=== PATIENT | male | born 1990 | race African-American/Black ===

== ENCOUNTER 2017-08-29 08:42 | Emergency (ER) | payer MEDICAID ==
[~2017-08-29] VITALS: Ht 188 cm; Wt 86.2 kg
[2017-08-29 08:58] VITALS: BP 114/78
[2017-08-29] MEDS ORDERED: LAMICTAL200 MG ORAL (09:16)
[2017-08-29 09:25] VITALS: BP 114/78
--- NOTE | 2017-08-30 12:35 | Emergency Room Report ---
History of Present Illness General Chief Complaint: Medication Refill Source: Patient Present Illness HPI 26 YO M with seizures since age 6 here for medication refill. states he hasnt seen his neurologist or couldnt get appt, ran out of lamictal 1 day ago. last seizure 2 mos ago. no fever chills black. no complaints. has been taking lamictal for many yrs Patient History Past Medical History: see triage record Past Surgical History: none Pertinent Family History: none Reviewed Nursing Documentation: PMH: Agreed, PSxH: Agreed Nursing Documentation-PMH Past Medical History: No History, Except For Hx Seizures: Yes Review of Systems All Other Systems: negative except mentioned in HPI Physical Exam Vital Signs Date Time Temp Pulse Resp B/P (MAP) Pulse Ox O2 Delivery O2 Flow Rate FiO2 08/29/17 08:53 97.9 63 14 114/78 98 Room Air Sp02 EP Interpretation: reviewed, normal General Appearance: normal inspection, well appearing, no apparent distress, alert, GCS 15, non-toxic Head: normocephalic, atraumatic Eyes: bilateral eye normal inspection, bilateral eye PERRL, bilateral eye EOMI ENT: normal ENT inspection, normal pharynx, normal voice, moist mucus membranes Neck: normal inspection, full range of motion, supple Respiratory: normal inspection, lungs clear, normal breath sounds, no respiratory distress, no retraction, no wheezing, speaking full sentences, chest symmetrical Cardiovascular #1: normal inspection, regular rate, rhythm, no edema, normal capillary refill Cardiovascular #2: 2+ radial (R), 2+ radial (L) Gastrointestinal: normal inspection, non tender, soft, non-distended, no guarding Genitourinary: no CVA tenderness Musculoskeletal: normal inspection, back normal, normal range of motion, non- tender Neurologic: normal inspection, alert, oriented x3, responsive, motor strength/ tone normal, sensory intact, normal gait, speech normal Psychiatric: normal inspection, judgement/insight normal, memory normal Skin: normal inspection, normal color, no rash, warm/dry, well hydrated, normal turgor Medical Decision Making Diagnostic Impression: Primary Impression: History of seizure Additional Impression: Medication refill ER Course 26 yo M here for medication refill for lamictal Dispo: DC'ed home with prescription lamictal x 1 week instructed to fu with neurologist CANDIDA for further refills Last Vital Signs Date Time Temp Pulse Resp B/P (MAP) Pulse Ox O2 Delivery O2 Flow Rate FiO2 08/29/17 09:25 97.9 68 14 114/78 98 Room Air Disposition: HOME, SELF-CARE Condition: Stable Scripts Lamotrigine (LAMICTAL) 200 Mg Tablet 200 MG ORAL BID for 7 Days, #14 TAB 0 Refills Prov: Lisy Samano M.D. 08/29/17 Referrals: NOT CHOSEN IPA/MD,REFERRING Patient Instructions: Medicine Refill at the Emergency Department, Seizure, Adult, [id number] Lisy Samano M.D. Aug 30, 2017 12:35
== END 2017-08-29 10:38 | disposition home or self-care (01) ==
LOC: EMR 09:06
DX: Z76.0 Encounter for issue of repeat prescription (principal); G40.909 Epilepsy, unspecified, not intractable, without status epilepticus
CPT/HCPCS: 99282

== ENCOUNTER 2017-09-12 18:47 | Emergency (ER) | payer MEDICAID ==
[~2017-09-12] VITALS: Ht 188 cm; Wt 81.6 kg
[~2017-09-12 18:47] MED LIST: LAMICTAL200 MG ORAL
[2017-09-12 19:12] VITALS: BP 115/75
--- NOTE | 2017-09-12 19:40 | Emergency Room Report ---
History of Present Illness General Chief Complaint: Medication Refill Source: Patient Present Illness HPI 26-year-old male presents to the emergency department requesting medication refill for his antiepileptic medication in addition to ibuprofen for which he takes for intermittent headaches. Patient states she has a history of chief maul seizures for which he takes 200 mg Lamictal twice daily he also has intermittent headaches for which he takes 600 mg ibuprofen only as needed for pain. Patient states he currently does not have a PCP which is why he is in the ER for medication refill. Patient states his last seizure was April of this year the last time he took his medication was this morning. he denies fevers, chills, pain/stiffness, ages in character to his headaches. Denies CP, Palpitations, LOC, AMS, dizziness, Changes in Vision, Sensation, paresthesias, or a sudden severe headache. Patient History Past Medical History: see triage record, seizures Past Surgical History: none Pertinent Family History: none Reviewed Nursing Documentation: PMH: Agreed, PSxH: Agreed Nursing Documentation-PMH Hx Seizures: Yes Review of Systems All Other Systems: negative except mentioned in HPI Physical Exam Vital Signs Date Time Temp Pulse Resp B/P (MAP) Pulse Ox O2 Delivery O2 Flow Rate FiO2 09/12/17 19:01 98.1 64 16 115/75 98 Room Air Sp02 EP Interpretation: reviewed, normal General Appearance: no apparent distress, alert, GCS 15, non-toxic Head: normocephalic, atraumatic Eyes: bilateral eye normal inspection, bilateral eye PERRL ENT: hearing grossly normal, normal voice Neck: full range of motion Respiratory: lungs clear, normal breath sounds, speaking full sentences Cardiovascular #1: regular rate, rhythm Musculoskeletal: back normal, gait/station normal, normal range of motion Neurologic: alert, oriented x3, responsive, motor strength/tone normal, sensory intact, normal gait, speech normal Skin: normal color, no rash, warm/dry, well hydrated Medical Decision Making PA Attestation Dr. lynch is my supervising Physician whom patient management has been discussed with. Diagnostic Impression: Primary Impression: Encounter for medication refill ER Course 26-year-old male presents to the emergency department requesting medication refill for his antiepileptic medication in addition to ibuprofen for which he takes for intermittent headaches. Patient states she has a history of chief maul seizures for which he takes 200 mg Lamictal twice daily he also has intermittent headaches for which he takes 600 mg ibuprofen only as needed for pain. Patient states he currently does not have a PCP which is why he is in the ER for medication refill. Patient states his last seizure was April of this year the last time he took his medication was this morning. he denies fevers, chills, pain/stiffness, ages in character to his headaches. Denies CP, Palpitations, LOC, AMS, dizziness, Changes in Vision, Sensation, paresthesias, or a sudden severe headache. Ddx considered but are not limited to: drug seeking, OD, seizure just to name a few. Vital signs: are WNL, pt. is afebrile H&PE are most consistent with need for medication refill and normal MSE. ORDERS: none required at this time, the diagnosis is clinical ED INTERVENTIONS: None required at this time. DISCHARGE: At this time pt. is stable for d/c to home. Will provide printed patient care instructions, and any necessary prescriptions. Care plan and follow up instructions have been discussed with the patient prior to discharge. Last Vital Signs Date Time Temp Pulse Resp B/P (MAP) Pulse Ox O2 Delivery O2 Flow Rate FiO2 09/12/17 19:01 98.1 64 16 115/75 98 Room Air Disposition: HOME, SELF-CARE Condition: Stable Scripts Ibuprofen* (MOTRIN*) 600 Mg Tablet 600 MG ORAL THREE TIMES A DAY, #30 TAB 0 Refills Prov: Hiwot Oleary 09/12/17 Lamotrigine (LAMICTAL XR) 200 Mg Tab.er.24 200 MG ORAL BID, #60 TAB 0 Refills Prov: Hiwot Oleary 09/12/17 Patient Instructions: Medicine Refill at the Emergency Department Additional Instructions: Take medications as directed. Follow up with a Primary Care Provider in 3-5 days, even if your symptoms have resolved. --Please review list of primary care clinics, if you do not already have a primary care provider Return sooner to ED if new symptoms occur, or current symptoms become worse. - Please note that this Emergency Department Report was dictated using [employer] Life Sciencesprimary care pediatrician technology software, occasionally this can lead to erroneous entry secondary to interpretation by the dictation equipment. Hiwot Oleary Sep 12, 2017 19:39
[2017-09-12] MEDS ORDERED: IBUPROFEN600 MG ORAL (19:41)
[2017-09-12] MEDS ORDERED: LAMICTAL XR200 MG ORAL (19:41)
[2017-09-12 19:52] VITALS: BP 115/75
== END 2017-09-12 19:52 | disposition home or self-care (01) ==
LOC: EMR 19:41
DX: G40.909 Epilepsy, unspecified, not intractable, without status epilepticus (principal); Z76.0 Encounter for issue of repeat prescription
CPT/HCPCS: 99282

== ENCOUNTER 2017-10-01 07:17 | Emergency (ER) | payer MEDICAID ==
[~2017-10-01] VITALS: Ht 188 cm; Wt 81.6 kg
[~2017-10-01 07:17] MED LIST changes: +IBUPROFEN600 MG ORAL; +LAMICTAL XR200 MG ORAL
[2017-10-01 07:35] VITALS: BP 130/83
--- NOTE | 2017-10-01 07:42 | Emergency Room Report ---
History of Present Illness General Chief Complaint: Laceration Source: Patient Present Illness HPI Patient reports punching a wall about 2 weeks ago he had multiple cuts on the forearm and the hand does have healed however there was one location at the base of the thumb which appears to be not fully closing Denies any pain denies any fevers or chills Patient reports that he has been putting peroxide in that area several times a day Denies any redness Denies any discharge Allergies: Coded Allergies: No Known Allergies (Unverified , 10/01/17) Patient History Past Medical History: see triage record Pertinent Family History: none Reviewed Nursing Documentation: PMH: Agreed, PSxH: Agreed Nursing Documentation-PMH Hx Seizures: Yes Review of Systems All Other Systems: negative except mentioned in HPI Physical Exam Vital Signs Date Time Temp Pulse Resp B/P (MAP) Pulse Ox O2 Delivery O2 Flow Rate FiO2 10/01/17 07:24 97.9 75 19 130/83 98 Room Air Sp02 EP Interpretation: reviewed, normal General Appearance: well appearing, no apparent distress Head: normocephalic, atraumatic Eyes: bilateral eye PERRL, bilateral eye EOMI ENT: normal pharynx, no angioedema Neck: supple Musculoskeletal: other - Good range of motion on the thumb appropriate approximation, there is a small puncture laceration that is open through the dermis Neurologic: alert, oriented x3, responsive, admissions officer III-XII nml as tested, motor strength/tone normal Skin: other - Small puncture signs of wound, secondary healing, no signs of erythema or fluctuance Lymphatic: no adenopathy Procedures Laceration/Wound Repair Progress Total length of the area is essentially a puncture wound approximately 2-3 mm the area is cleansed and prepped Steri-Strip was applied over the top for mild approximation Patient tolerated the procedure well Medical Decision Making Diagnostic Impression: Primary Impression: Laceration Additional Impression: old laceration, not sutured ER Course Given the date of the initial injury over 2 weeks ago I do not feel suturing of the area would be appropriate Areas also fairly small in nature Steri-Strip was applied with appropriate approximation The patient is stable for close followup Last Vital Signs Date Time Temp Pulse Resp B/P (MAP) Pulse Ox O2 Delivery O2 Flow Rate FiO2 10/01/17 07:35 97.9 84 19 130/83 98 Room Air Status: improved Disposition: HOME, SELF-CARE Condition: Improved [facility]errals: [facility] (PCP) Additional Instructions: Patient is provided with the discharge instructions notified to follow up with primary doctor in the next 2-3 days otherwise return to the er with any worsening symptoms. Please note that this report is being documented using [employer] technology. This can lead to erroneous entry secondary to incorrect interpretation by the dictating instrument. BRANDON LAROSE D.O. Oct 01, 2017 07:42
[2017-10-01 07:49] VITALS: BP 130/83
== END 2017-10-01 07:51 | disposition home or self-care (01) ==
LOC: EMR 07:37
DX: S61.011A Laceration without foreign body of right thumb without damage to nail, initial encounter (principal); W22.09XA Striking against other stationary object, initial encounter; Y92.9 Unspecified place or not applicable
CPT/HCPCS: 99284

== ENCOUNTER 2017-11-04 20:35 | Emergency (ER) | payer MEDICAID ==
[~2017-11-04] VITALS: Ht 188 cm; Wt 80.7 kg
[2017-11-04] MEDS ORDERED: LAMICTAL200 MG ORAL (21:44)
--- NOTE | 2017-11-04 21:44 | Emergency Room Report ---
History of Present Illness General Chief Complaint: Medication Refill Source: Patient Present Illness HPI Is a 27-year-old male with a history of seizure. He presents with chief complaint of seizure last night. He need to refill on his Lamictal. Been out of it for one day. No seizure today. Denies any other complaint. Similar symptom in the past. He does not drive. Allergies: Coded Allergies: No Known Allergies (Unverified , 10/01/17) Patient History Past Medical History: see triage record, old chart reviewed, seizures Past Surgical History: none Pertinent Family History: none Social History: Denies: smoking Immunizations: other Reviewed Nursing Documentation: PMH: Agreed, PSxH: Agreed Nursing Documentation-PMH Hx Seizures: Yes Review of Systems Eye: Denies: eye pain, blurred vision ENT: Denies: ear pain, nose congestion, throat swelling Respiratory: Denies: cough, shortness of breath Cardiovascular: Denies: chest pain, palpitations Gastrointestinal: Denies: abdominal pain, diarrhea, nausea, vomiting Musculoskeletal: Denies: back pain, joint pain Skin: Denies: rash Neurological: Denies: headache, numbness Endocrine: Denies: increased thirst, increased urine Hematologic/Lymphatic: Denies: easy bruising All Other Systems: negative except mentioned in HPI Physical Exam Vital Signs Date Time Temp Pulse Resp B/P (MAP) Pulse Ox O2 Delivery O2 Flow Rate FiO2 11/04/17 20:51 97.9 72 18 114/81 98 Room Air vitals normal Sp02 EP Interpretation: reviewed, normal General Appearance: well appearing, no apparent distress, alert Head: normocephalic, atraumatic Eyes: bilateral eye PERRL, bilateral eye EOMI ENT: hearing grossly normal, normal pharynx Neck: full range of motion, supple, no meningismus Respiratory: chest non-tender, lungs clear, normal breath sounds Cardiovascular #1: regular rate, rhythm, no murmur Gastrointestinal: normal bowel sounds, non tender, no mass, no organomegaly, no bruit, non-distended Musculoskeletal: back normal, gait/station normal, normal range of motion Psychiatric: mood/affect normal Skin: warm/dry Medical Decision Making Diagnostic Impression: Primary Impression: Medication refill Additional Impression: History of seizure ER Course Patient here for refill his seizure medication. He does not drive. No active seizure. Last Vital Signs Date Time Temp Pulse Resp B/P (MAP) Pulse Ox O2 Delivery O2 Flow Rate FiO2 11/04/17 20:51 97.9 72 18 114/81 98 Room Air Status: improved Disposition: HOME, SELF-CARE Condition: Stable Scripts Lamotrigine (LAMICTAL) 200 Mg Tablet 200 MG ORAL TWICE A DAY, #60 TAB 0 Refills Prov: LENNY COLE M.D. 11/04/17 Patient Instructions: Medicine Refill at the Emergency Department Additional Instructions: Followup with your DrKathy for refills on your medication. Followup within the week. Return if worse. LENNY COLE M.D. Nov 04, 2017 21:44
[2017-11-04 21:45] VITALS: BP 114/81
== END 2017-11-04 21:45 | disposition home or self-care (01) ==
LOC: EMR 21:40
DX: Z76.0 Encounter for issue of repeat prescription (principal); R56.9 Unspecified convulsions
CPT/HCPCS: 99283

== ENCOUNTER 2017-12-19 20:09 | Emergency (ER) | payer MEDICAID ==
[~2017-12-19] VITALS: Ht 188 cm; Wt 81.6 kg
[2017-12-19 20:20] VITALS: BP 130/84
[2017-12-19] MEDS ORDERED: IBUPROFEN600 MG ORAL (20:22)
[2017-12-19] MEDS ORDERED: LAMICTAL200 MG ORAL (20:32)
[2017-12-19 20:45] VITALS: BP 128/82
--- NOTE | 2017-12-23 12:00 | Emergency Room Report ---
History of Present Illness General Chief Complaint: Medication Refill Source: Patient Present Illness HPI Patient is a 27-year-old male who presented after running out of his medications. Patient reportedly takes medications for seizure. The patient states he had been taking 200 mg of Lamictal. The patient reports taking his medication this morning but did not have his evening dose. Patient denied any current complaints Allergies: Coded Allergies: No Known Allergies (Unverified , 10/01/17) Patient History Past Medical History: see triage record Reviewed Nursing Documentation: PMH: Agreed, PSxH: Agreed Nursing Documentation-PMH Past Medical History: No History, Except For Hx Seizures: Yes Review of Systems All Other Systems: negative except mentioned in HPI Physical Exam Vital Signs Date Time Temp Pulse Resp B/P (MAP) Pulse Ox O2 Delivery O2 Flow Rate FiO2 12/19/17 20:17 97.9 62 17 137/85 96 Room Air 97.9 General Appearance: well appearing, no apparent distress, alert, GCS 15 Head: normocephalic, atraumatic ENT: hearing grossly normal, normal voice Neck: full range of motion, supple Respiratory: no respiratory distress, speaking full sentences Musculoskeletal: no calf tenderness Neurologic: normal gait Psychiatric: mood/affect normal Skin: no rash Medical Decision Making Diagnostic Impression: Primary Impression: Medication refill ER Course The patient presented for medication refill. The patient was given a dose of his seizure medication. Patient given prescriptions for Lamictal. The patient is advised to establish himself with neurology for further refills and monitoring of seizure disorder. Last Vital Signs Date Time Temp Pulse Resp B/P (MAP) Pulse Ox O2 Delivery O2 Flow Rate FiO2 12/19/17 20:45 36.98892 79 17 128/82 100 Room Air 208.2 Status: improved Disposition: HOME, SELF-CARE Condition: Stable Scripts Lamotrigine (LAMICTAL) 200 Mg Tablet 200 MG ORAL TWICE A DAY, #60 TAB 0 Refills Prov: José Miguel Avendaño 12/19/17 Referrals: [facility] (PCP) Patient Instructions: Medicine Refill at the Emergency Department José Miguel Avendaño Dec 23, 2017 12:00
== END 2017-12-19 20:47 | disposition home or self-care (01) ==
LOC: EMR 20:38
DX: Z76.0 Encounter for issue of repeat prescription (principal)
CPT/HCPCS: 99283

== ENCOUNTER 2018-03-06 09:50 | Emergency (ER) | payer MEDICAID ==
[~2018-03-06] VITALS: Ht 188 cm; Wt 81.6 kg
[2018-03-06] MEDS ORDERED: CLOTRIMAZOLE15 GM TOPIC (10:10)
[2018-03-06 10:36] VITALS: BP 121/74
[2018-03-06 10:38] VITALS: BP 121/74
--- NOTE | 2018-03-12 07:33 | Emergency Room Report ---
History of Present Illness General Chief Complaint: Skin Rash/Abscess Source: Patient Present Illness HPI Patient persist with complaints of lesion on the right side of the penis He noticed this about 7 days ago Denies any itching Denies any pain Denies any fevers or chills Denies any inguinal masses Denies any discharge Patient essentially active with one partner Denies any frequency of urination Denies any blood in the urine denies any testicular pain Allergies: Coded Allergies: No Known Allergies (Unverified , 10/01/17) Patient History Past Medical History: see triage record Pertinent Family History: none Reviewed Nursing Documentation: PMH: Agreed; PSxH: Agreed Nursing Documentation-PMH Hx Seizures: Yes Review of Systems All Other Systems: negative except mentioned in HPI Physical Exam Sp02 EP Interpretation: reviewed, normal General Appearance: well appearing, no apparent distress Head: normocephalic, atraumatic Eyes: bilateral eye PERRL ENT: normal pharynx, no angioedema Neck: supple Respiratory: lungs clear Gastrointestinal: non tender, soft, no mass Genitourinary: other - Circumcised patient, small irregular lesion on the right mid aspect of the penile shaft, no ulceration nontender to palpation, the area that specific lesion appears mildly raised, nonerythematous, no discharge, Musculoskeletal: back normal Neurologic: alert, oriented x3 Skin: other - As above Lymphatic: no adenopathy Medical Decision Making Diagnostic Impression: Primary Impression: Rash and other nonspecific skin eruption ER Course Patient has a nonspecific pain all rash Does not appear to be in line with herpetic lesion, or syphilis. There is a questionable fungal component. Patient is attempted on this medication initially However he requires STD clinic follow-up and dermatology follow-up Status: unchanged Disposition: HOME, SELF-CARE Condition: Stable Scripts Clotrimazole* (LOTRIMIN*) 15 Gm Cream..g. 1 APPLIC TOPIC TWICE A DAY for 10 Days, GM Prov: Heather Cuellar DO 03/06/18 Referrals: NON PHYSICIAN (PCP) Patient Instructions: Rash Additional Instructions: Patient is provided with the discharge instructions notified to follow up with primary doctor in the next 2-3 days otherwise return to the er with any worsening symptoms. Please note that this report is being documented using [employer] technology. This can lead to erroneous entry secondary to incorrect interpretation by the dictating instrument. Heather Cuellar DO March 12, 2018 07:33
== END 2018-03-06 14:00 | disposition home or self-care (01) ==
LOC: EMR 10:30
DX: R21 Rash and other nonspecific skin eruption (principal)
CPT/HCPCS: 99282

== ENCOUNTER 2018-06-08 20:17 | Emergency (ER) | payer MEDICAID ==
[~2018-06-08] VITALS: Ht 188 cm; Wt 78.0 kg
[~2018-06-08 20:17] MED LIST changes: +CLOTRIMAZOLE15 GM TOPIC
[2018-06-08] MEDS ORDERED: KEPPRA500 M4 ORAL (20:22)
[2018-06-08 20:56] LABS: BASOPHILS % (AUTO) 2.3 % (0.0-2.0); HEMATOCRIT 50.5 % (42.0-52.0); HEMOGLOBIN 16.6 G/DL (14.2-18.0); LYMPHOCYTES % (AUTO) 42.8 % (20.0-45.0); MEAN CORPUSCULAR VOLUME 89 FL (80-99); MONOCYTES % (AUTO) 8.8 % (1.0-10.0); PLATELET COUNT 132 K/UL (150-450); RED CELL DISTRIBUTION WIDTH 12.1 % (11.6-14.8); WHITE BLOOD COUNT 4.7 K/UL (4.8-10.8)
[2018-06-08 21:08] LABS: ANION GAP 22 mmol/L (5-15); BLOOD UREA NITROGEN 12 mg/dL (7-18); CALCIUM 9.9 MG/DL (8.5-10.1); CARBON DIOXIDE 19 MMOL/L (21-32); CHLORIDE 100 MMOL/L (98-107); CREATININE 1.8 MG/DL (0.55-1.30); POTASSIUM 3.9 MMOL/L (3.5-5.1); SODIUM 141 MMOL/L (136-145)
[2018-06-08 21:12] LABS: ALANINE AMINOTRANSFERASE 24 U/L (12-78); ALBUMIN 4.4 G/DL (3.4-5.0); ALBUMIN/GLOBULIN RATIO 1.1 (1.0-2.7); ALKALINE PHOSPHATASE 66 U/L (46-116); ASPARTATE AMINO TRANSFERASE 22 U/L (15-37); BILIRUBIN,TOTAL 0.5 MG/DL (0.2-1.0)
[2018-06-08] MEDS ORDERED: LAMICTAL200 MG ORAL (21:41)
--- NOTE | 2018-06-08 22:15 | Emergency Room Report ---
History of Present Illness General Chief Complaint: Seizure Source: Patient, EMS Present Illness HPI Patient is a 27-year-old male brought in by EMS after witnessed seizure. Patient prior history of seizure disorder. Patient recently been changed from Lamictal to Keppra. Patient been taking normally Lamictal 200 mg twice a day. The patient had not been having a fever or vomiting. He denies any pain. Allergies: Coded Allergies: No Known Allergies (Unverified , 10/01/17) Patient History Past Medical History: see triage record Reviewed Nursing Documentation: PMH: Agreed; PSxH: Agreed Nursing Documentation-PMH Hx Seizures: Yes Review of Systems All Other Systems: negative except mentioned in HPI Physical Exam Vital Signs Date Time Temp Pulse Resp B/P (MAP) Pulse Ox O2 Delivery O2 Flow Rate FiO2 06/08/18 20:19 98.0 102 18 120/76 98 98.1 06/08/18 20:36 Room Air Sp02 EP Interpretation: reviewed, normal General Appearance: normal inspection, well appearing, no apparent distress, alert, GCS 15 Head: atraumatic ENT: normal ENT inspection, hearing grossly normal, normal voice Neck: normal inspection, full range of motion, supple, no bony tend Respiratory: normal inspection, lungs clear, normal breath sounds, no respiratory distress, no retraction, no wheezing Cardiovascular #1: regular rate, rhythm, no edema Gastrointestinal: normal inspection, normal bowel sounds, non tender, soft, no guarding, no hernia Genitourinary: no CVA tenderness Musculoskeletal: normal inspection, back normal, normal range of motion Neurologic: normal inspection, alert, oriented x3, responsive, motor bike mechanic III-XII nml as tested, speech normal Psychiatric: normal inspection, judgement/insight normal, mood/affect normal Skin: normal inspection, normal color, no rash Medical Decision Making Diagnostic Impression: Primary Impression: Seizure disorder ER Course patient presented for seizure. Differential diagnosis included alcohol withdrawal, cysticercosis, electrolyte abnormality, mass lesion, or cranial hemorrhage.Because of complexity of patient's case laboratory testing was ordered. The patient noted to have slightly elevated creatinine. The patient given prescription for Lamictal. Seizure report was made. Patient was advised to continue hydration at home. The patient was given IV fluids while in emergency department.The patient is advised to follow up with primary care doctor in 1-2 days. Patient is advised to return if any worsening condition or if any changes in status that are concerning. This report is dictated with [employer] animal science instructor software which may occasionally lead to discrepancies related to use of this software. Labs Test 06/08/18 20:37 White Blood Count 4.7 K/UL (4.8-10.8) Red Blood Count 5.70 M/UL (4.70-6.10) Hemoglobin 16.6 G/DL (14.2-18.0) Hematocrit 50.5 % (42.0-52.0) Mean Corpuscular Volume 89 FL (80-99) Mean Corpuscular Hemoglobin 29.0 PG (27.0-31.0) Mean Corpuscular Hemoglobin Concent 32.8 G/DL (32.0-36.0) Red Cell Distribution Width 12.1 % (11.6-14.8) Platelet Count 132 K/UL (150-450) Mean Platelet Volume 9.9 FL (6.5-10.1) Neutrophils (%) (Auto) 44.0 % (45.0-75.0) Lymphocytes (%) (Auto) 42.8 % (20.0-45.0) Monocytes (%) (Auto) 8.8 % (1.0-10.0) Eosinophils (%) (Auto) 2.0 % (0.0-3.0) Basophils (%) (Auto) 2.3 % (0.0-2.0) Sodium Level 141 MMOL/L (136-145) Potassium Level 3.9 MMOL/L (3.5-5.1) Chloride Level 100 MMOL/L (98-107) Carbon Dioxide Level 19 MMOL/L (21-32) Anion Gap 22 mmol/L (5-15) Blood Urea Nitrogen 12 mg/dL (7-18) Creatinine 1.8 MG/DL (0.55-1.30) Estimat Glomerular Filtration Rate 54.3 mL/min (>60) Glucose Level 106 MG/DL (74-106) Calcium Level 9.9 MG/DL (8.5-10.1) Total Bilirubin 0.5 MG/DL (0.2-1.0) Aspartate Amino Transf (AST/SGOT) 22 U/L (15-37) Alanine Aminotransferase (ALT/SGPT) 24 U/L (12-78) Alkaline Phosphatase 66 U/L (46-116) Total Protein 8.4 G/DL (6.4-8.2) Albumin 4.4 G/DL (3.4-5.0) Globulin 4.0 g/dL Albumin/Globulin Ratio 1.1 (1.0-2.7) EKG Diagnostic Results Rate: normal Rhythm: NSR ST Segments: no acute changes Last Vital Signs Date Time Temp Pulse Resp B/P (MAP) Pulse Ox O2 Delivery O2 Flow Rate FiO2 06/08/18 20:36 102 18 Room Air 06/08/18 20:19 98.0 120/76 98 98.1 Status: improved Disposition: HOME, SELF-CARE Condition: Stable Scripts Lamotrigine (LAMICTAL) 200 Mg Tablet 200 MG ORAL TWICE A DAY, #60 TAB 0 Refills Prov: José Miguel Avendaño MD 06/08/18 Referrals: [facility] (PCP) Patient Instructions: Seizure, Adult José Miguel Avendaño MD Jun 08, 2018 22:15
[2018-06-08 23:07] VITALS: BP 120/76
== END 2018-06-08 23:13 | disposition home or self-care (01) ==
LOC: EDBD 20:17 → EDUNIT# 20:17 → EMR 21:00
DX: G40.909 Epilepsy, unspecified, not intractable, without status epilepticus (principal)
CPT/HCPCS: 36415; 80053; 85025; 99284

== ENCOUNTER 2019-05-06 07:43 | Emergency (ER) | payer MEDICAID ==
[~2019-05-06] VITALS: Ht 188 cm; Wt 77.1 kg
[~2019-05-06 07:43] MED LIST changes: +KEPPRA500 M4 ORAL
[2019-05-06 08:10] VITALS: BP 124/78
--- NOTE | 2019-05-06 08:13 | NUR ---
ED Nurse Note: pt walked in to ED due to feeling dizzy since this morning. per pt, floor was spinning. AAO x4. respirations even and non-labored noted. ambulatory with steady gait. skin warm to touch. no open wound noted. will wait for the further order.
[2019-05-06] MEDS ORDERED: LAMICTAL200 MG ORAL (08:34)
[2019-05-06 08:44] VITALS: BP 124/78
--- NOTE | 2019-05-06 08:45 | NUR ---
ER DISCHARGE NOTE: Patient is cleared to be discharged per ERMD, pt is aox4, on room air, with stable vital signs. pt was given dc and prescription instructions, pt was able to verbalize understanding, pt id band removed. pt is able to ambulate with steady gait. pt took all belongings.
--- NOTE | 2019-05-06 10:30 | Emergency Room Report ---
History of Present Illness General Chief Complaint: Dizziness Source: Patient Present Illness HPI Patient presents with complaints of dizziness reports that He needs a prescription for his Lamictal and that he has had dizziness before when running low on his Lamictal Denies any headache denies any chest pain denies any back or flank pain denies any focal weakness Dizziness is essentially their baseline without any change in position or exertion denies any headache with it denies any recent seizures however he reports he has Frequent seizure activity he has been on the same Lamictal dosage for over a year And reports taking seizure medication since being a child denies any fevers denies any neck pain denies any photophobia Allergies: Coded Allergies: No Known Allergies (Unverified , 10/01/17) Patient History Past Medical History: see triage record Pertinent Family History: none Reviewed Nursing Documentation: PMH: Agreed; PSxH: Agreed Nursing Documentation-PMH Past Medical History: No History, Except For Hx Seizures: Yes Review of Systems All Other Systems: negative except mentioned in HPI Physical Exam Vital Signs Date Time Temp Pulse Resp B/P (MAP) Pulse Ox O2 Delivery O2 Flow Rate FiO2 05/06/19 08:01 98.2 58 16 124/78 (93) 98 Room Air Sp02 EP Interpretation: reviewed, normal General Appearance: well appearing, no apparent distress Head: normocephalic, atraumatic Eyes: bilateral eye PERRL, bilateral eye EOMI ENT: hearing grossly normal, normal pharynx, TMs + canals normal, uvula midline Neck: full range of motion, supple, no meningismus, no bony tend Respiratory: lungs clear, normal breath sounds, no rhonchi, no respiratory distress, no retraction, no accessory muscle use Cardiovascular #1: normal peripheral pulses, regular rate, rhythm, no edema, no gallop, no JVD, no murmur Gastrointestinal: normal bowel sounds, non tender, soft, no mass, no organomegaly, non-distended, no guarding, no hernia, no pulsatile mass, no rebound Genitourinary: no CVA tenderness Musculoskeletal: normal inspection Neurologic: oriented x3, responsive, subscription clerk III-XII nml as tested, motor strength/ tone normal, sensory intact Psychiatric: mood/affect normal Lymphatic: normal inspection, no adenopathy Medical Decision Making Diagnostic Impression: Primary Impression: History of seizure Additional Impressions: Medication refill Dizziness ER Course Given the patient's initial complaint multiple differentials and consideration patient also reports that he thinks he was not drinking enough water Mainly contributes the symptoms to his previous symptoms when running low on his Lamictal Patient reports getting routine checks of his blood with his primary physician Hemodynamically stable does not show any acute signs of dizziness here and will have initial conservative outpatient attempt with refill of his medications Last Vital Signs Date Time Temp Pulse Resp B/P (MAP) Pulse Ox O2 Delivery O2 Flow Rate FiO2 05/06/19 08:44 98.2 57 16 124/78 98 Room Air Status: unchanged Disposition: HOME, SELF-CARE Condition: Improved Scripts Lamotrigine (LAMICTAL) 200 Mg Tablet 200 MG ORAL DAILY, #30 TAB 0 Refills Prov: Heather Cuellar DO 05/06/19 Referrals: NON PHYSICIAN (PCP) Patient Instructions: Dizziness, Seizure, Adult, [id number] Additional Instructions: Patient is provided with the discharge instructions notified to follow up with primary doctor in the next 2-3 days otherwise return to the er with any worsening symptoms. Please note that this report is being documented using [employer] technology. This can lead to erroneous entry secondary to incorrect interpretation by the dictating instrument. Heather Cuellar DO May 06, 2019 10:30
== END 2019-05-06 08:49 | disposition home or self-care (01) ==
LOC: EMR 08:49
DX: R42 Dizziness and giddiness (principal); Z76.0 Encounter for issue of repeat prescription; G40.909 Epilepsy, unspecified, not intractable, without status epilepticus
CPT/HCPCS: 99282

== ENCOUNTER 2019-09-19 22:29 | Emergency (ER) | payer MEDICAID ==
[~2019-09-19] VITALS: Ht 188 cm; Wt 77.1 kg
[2019-09-19] MEDS ORDERED: LAMICTAL150 MG ORAL (22:38)
[2019-09-19 22:54] VITALS: BP 125/86
--- NOTE | 2019-09-19 23:01 | Emergency Room Report ---
History of Present Illness General Chief Complaint: Abdominal Pain Source: Patient Present Illness HPI This is a 28-year-old with no past medical history. He presents with chief complaint abdominal pain and dizziness. Onset for 3 days now. On the first day he had some epigastric pain and several episode of vomiting. No vomiting since but decreased appetite. Now he felt lightheaded and dizzy. Worse when he stands up. No diarrhea. No fever chills. Pain is localized to the epigastric area. Pain is sharp and 7 out of 10. No radiation. No trauma. Allergies: Coded Allergies: No Known Allergies (Unverified , 10/01/17) Patient History Past Medical History: see triage record, old chart reviewed, seizures Past Surgical History: none Pertinent Family History: none Social History: Denies: smoking Immunizations: other Reviewed Nursing Documentation: PMH: Agreed; PSxH: Agreed Nursing Documentation-PMH Past Medical History: No History, Except For Hx Seizures: Yes Review of Systems Eye: Denies: eye pain, blurred vision ENT: Denies: ear pain, nose congestion, throat swelling Respiratory: Denies: cough, shortness of breath Cardiovascular: Denies: chest pain, palpitations Gastrointestinal: Reports: abdominal pain, nausea, vomiting; Denies: diarrhea Musculoskeletal: Denies: back pain, joint pain Skin: Denies: rash Neurological: Reports: dizziness; Denies: headache, numbness Endocrine: Denies: increased thirst, increased urine Hematologic/Lymphatic: Denies: easy bruising All Other Systems: negative except mentioned in HPI Physical Exam Vital Signs Date Time Temp Pulse Resp B/P (MAP) Pulse Ox O2 Delivery O2 Flow Rate FiO2 09/19/19 22:32 98.2 96 17 125/86 (99) 99 Room Air Vitals normal Sp02 EP Interpretation: reviewed, normal General Appearance: well appearing, no apparent distress, alert Head: normocephalic, atraumatic Eyes: bilateral eye PERRL, bilateral eye EOMI ENT: hearing grossly normal, normal pharynx Neck: full range of motion, supple, no meningismus Respiratory: chest non-tender, lungs clear, normal breath sounds Cardiovascular #1: regular rate, rhythm, no murmur Gastrointestinal: normal bowel sounds, no mass, no organomegaly, no bruit, non- distended, tenderness - epigastric Musculoskeletal: back normal, gait/station normal, normal range of motion Psychiatric: mood/affect normal Medical Decision Making Diagnostic Impression: Primary Impression: Dizziness Additional Impressions: Nausea and vomiting Qualified Codes: R11.2 - Nausea with vomiting, unspecified KWASI (acute kidney injury) Seizure disorder ER Course Patient presents with dizziness. This may be secondary to orthostatic hypotension since he is has been vomiting and decreased appetite. Better now. He had a brief seizure activity with mostly jerking of his head and right side staring. This lasted for less than 30 seconds and witnessed by me. Patient said he did not take his night dose of Lamictal yet. I gave him a dose of Ativan here. Patient said that he does not drive because of his seizure. Last Vital Signs Date Time Temp Pulse Resp B/P (MAP) Pulse Ox O2 Delivery O2 Flow Rate FiO2 09/19/19 22:54 98.2 68 17 125/86 99 Room Air Status: improved Disposition: HOME, SELF-CARE Condition: Stable Patient Instructions: Abdominal Pain, Adult Additional Instructions: Increase fluids. Take your seizure medication when you get home. Follow-up with your doctor in 2-3 days if not better. return if worse. Joselito Huynh MD Sep 19, 2019 23:01
[2019-09-19 23:08] LABS: ANION GAP 7 mmol/L (5-15); BLOOD UREA NITROGEN 16 mg/dL (7-18); CALCIUM 9.5 MG/DL (8.5-10.1); CARBON DIOXIDE 30 MMOL/L (21-32); CHLORIDE 100 MMOL/L (98-107); CREATININE 1.5 MG/DL (0.55-1.30); SODIUM 137 MMOL/L (136-145)
[2019-09-19 23:13] LABS: ALANINE AMINOTRANSFERASE 29 U/L (12-78); ALBUMIN 4.5 G/DL (3.4-5.0); ALBUMIN/GLOBULIN RATIO 1.1 (1.0-2.7); ALKALINE PHOSPHATASE 72 U/L (46-116); ASPARTATE AMINO TRANSFERASE 22 U/L (15-37); BILIRUBIN,TOTAL 0.8 MG/DL (0.2-1.0)
[2019-09-19 23:15] LABS: BILIRUBIN, URINE NEGATIVE (NEGATIVE); COLOR,URINE YELLOW; GLUCOSE, URINE (UA) NEGATIVE (NEGATIVE); KETONES,URINE 1+ (NEGATIVE); LEUKOCYTE ESTERASE ,URINE NEGATIVE (NEGATIVE); NITRITE,URINE NEGATIVE (NEGATIVE); PH,URINE 6 (4.5-8.0); PROTEIN,URINE 2+ (NEGATIVE); UROBILINOGEN,URINE 1 MG/DL (0.0-1.0)
[2019-09-19 23:16] LABS: APPEARANCE,URINE SLIGHTLY CLOUDY
[2019-09-19 23:18] LABS: BASOPHILS % (AUTO) 1.5 % (0.0-2.0); EOSINOPHILS % (AUTO) 6.6 % (0.0-3.0); HEMATOCRIT 49.1 % (42.0-52.0); LYMPHOCYTES % (AUTO) 37.2 % (20.0-45.0); MEAN CORPUSCULAR VOLUME 86 FL (80-99); MONOCYTES % (AUTO) 9.4 % (1.0-10.0); NEUTROPHILS % (AUTO) 45.3 % (45.0-75.0); PLATELET COUNT 145 K/UL (150-450); WHITE BLOOD COUNT 3.6 K/UL (4.8-10.8)
[2019-09-20] MEDS ORDERED: LORazepam Inj 2mg/ml 1ml IV ONE (00:30)
[2019-09-20 01:00] VITALS: BP 123/79
[2019-09-20 01:30] VITALS: BP 123/79
== END 2019-09-20 01:30 | disposition home or self-care (01) ==
LOC: EMR 23:59
DX: R42 Dizziness and giddiness (principal); R11.2 Nausea with vomiting, unspecified; N17.9 Acute kidney failure, unspecified; G40.909 Epilepsy, unspecified, not intractable, without status epilepticus; Z79.899 Other long term (current) drug therapy
CPT/HCPCS: 36415; 80053; 81003; 83690; 85025; 96361; 96374; 96375; J2405; S0028; Z7502; 99284; J7030